=== PATIENT | male | born 1945 | race Caucasian/White ===

== ENCOUNTER → 2018-06-23 | Outpatient (CLI) | payer OTHER | END | disposition home or self-care (01) | LOC: PCVCCLINIC 11:43 | PROVIDERS: ATTEND Internal Medicine | DX: I25.10 Atherosclerotic heart disease of native coronary artery without angina pectoris (principal); I10 Essential (primary) hypertension; I65.29 Occlusion and stenosis of unspecified carotid artery; E78.5 Hyperlipidemia, unspecified; E11.9 Type 2 diabetes mellitus without complications; Z79.84 Long term (current) use of oral hypoglycemic drugs; Z87.891 Personal history of nicotine dependence | CPT/HCPCS: 93005; G0463 ==

== ENCOUNTER → 2018-07-24 | Outpatient (CLI) | payer OTHER ==
[~2018-07-24] MED LIST: REGADENOSON 0.4 MG/5 ML DISP.SYRIN. IV ONE
--- NOTE | 2018-07-24 11:33 | PCVCIMAG ---
APPROVED REPORT Study performed: 07/24/2018 08:55:08 EXAM: Comprehensive 2D, Doppler, and color-flow Echocardiogram Patient Location: Echo lab Status: routine BSA: 2.12 HR: 58 bpmBP: 142/82 mmHg Rhythm: NSR Other Information Study Quality: Adequate Risk Factors: Cardiac Risk Factors: HTN, Hyperlipidemia, DM Indications CAD 2D Dimensions IVSd: 11.69 (7-11mm)LVOT Diam: 20.00 (18-24mm) LVDd: 39.33 mm PWd: 11.91 (7-11mm)Ascending Ao: 31.96 (22-36mm) LVDs: 27.30 (25-40mm) Left Atrium: 42.67 (27-40mm) Aortic Root: 28.34 mm LV Single Plane 4CH: 62.99 % LV Single Plane 2CH: 64.04 % Biplane EF: 62.4 % Volumes Left Atrial Volume (Systole) Single Plane 4CH: 46.92 mLSingle Plane 2CH: 69.93 mL LA ESV Index: 30.00 mL/m2 Aortic Valve AoV Peak Brandon.: 1.23 m/s AO Peak Gr.: 6.04 mmHgLVOT Max P.03 mmHg LVOT Max V: 1.00 m/s DYLAN Vmax: 2.70 cm2 Mitral Valve E/A Ratio: 1.5 MV Decel. Time: 282.53 ms MV E Max Brandon.: 0.82 m/s MV A Brandon.: 0.55 m/s IVRT: 51.90 ms TDI E/Lateral E': 9.11E/Medial E': 10.25 Medial E' Brandon.: 0.08 m/s Lateral E' Brandon.: 0.09 m/s Pulmonary Valve PV Peak Brandon.: 0.81 m/sPV Peak Gr.: 2.63 mmHg Pulmonary Vein P Vein S: 0.61 m/sP Vein A: 0.27 m/s P Vein D: 0.56 m/sP Vein A Dur.: 114.2 msec P Vein S/D Ratio: 1.09 Tricuspid Valve TR Peak Brandon.: 2.68 m/sRAP Estimate: 7.00 mmHg TR Peak Gr.: 28.81 mmHg PA Pressure: 36.00 mmHg Left Ventricle The left ventricle is normal size. There is normal LV segmental wall motion. Mild concentric left ventricular hypertrophy. Left ventricular systolic function is normal. The left ventricular ejection fraction is within the normal range. LVEF is 60-65%. The left ventricular diastolic function is normal. Right Ventricle The right ventricle is normal size. The right ventricular systolic function is normal. Atria The left atrium size is normal. The right atrium size is normal. Aortic Valve The aortic valve is normal in structure. No aortic regurgitation is present. There is no aortic valvular stenosis. Mitral Valve The mitral valve is normal in structure. Trace to mild mitral regurgitation. No evidence of mitral valve stenosis. Tricuspid Valve The tricuspid valve is normal in structure. Mild tricuspid regurgitation. Pulmonary artery pressure is 36 mmHg. Pulmonic Valve The pulmonary valve is normal in structure. Trace pulmonic regurgitation. Great Vessels The aortic root is normal in size. IVC is normal in size and collapses >50% with inspiration. Pericardium There is no pericardial effusion. <Conclusion> The left ventricle is normal size. LVEF is 60-65%. The aortic valve is normal in structure. The mitral valve is normal in structure. Trace to mild mitral regurgitation. The tricuspid valve is normal in structure. Mild tricuspid regurgitation. Pulmonary artery pressure is 36 mmHg. The pulmonary valve is normal in structure. Trace pulmonic regurgitation. There is no pericardial effusion.
--- NOTE | 2018-07-25 11:20 | PCVCIMAG ---
APPROVED REPORT Imaging Protocol: Rest Tc-99m/Stress Tc-99m 1 day Study performed: 07/24/2018 09:19:19 Indication: CAD Patient Location: Out-Patient Stress Nurse: Shelly Lozada RN, Kamala Palacios RN [place] Tech:Terri Kunz [facility] Ht: 6 ft 0 in Wt: 197 lbs BSA: 2.12 m2 HR: 61 bpm BP: 188/82 mmHg BMI: 26.71 Rhythm: Sinus Rhythm Medical History Medical History: HTN, Hyperlipidemia, CVD, CAD, Diabetes, Former Smoker Medications: Amlodipine, Coreg, Catapres, Lisinopril, Metformin, Zocor Allergies: No known drug allergies Cardiac Risk Factors: Age Pretest Chest Pain Characteristics: No chest pain Exercise History: Physically active Meds Held (24 hrs): Coreg Resting Data Rest SPECT myocardial perfusion imaging was performed in supine position 45 minutes following the intravenous injection of 10.4 mCi of Tc-99m Sestamibi. Time of rest injection: 944 Date: 07/24/2018 Administration Route: IV Administration Site: Left AC Pharmacologic Stress Pharmacologic stress test was performed by injecting Regadenoson 0.4 mg IV push over 10-15 seconds immediately followed by the intravenous injection of 33.9 mCi of Tc-99m Sestamibi. Time of stress injection: 1110 Date: 07/24/2018 Administration Route: IV Administration Site: Left AC Gated Stress SPECT was performed 45 minutes after stress injection. The images were gated to evaluate regional wall motion and calculate left ventricular ejection fraction. Stress Test Details Stress Test: Pharmacologic stress was paired with low level exercise. Reason for pharmacologic stress test: High blood pressure. HRMax Heart Rate (APMHR): 149 bpm Resting HR: 61 bpmTarget HR (85% APMHR): 126 bpm Max HR Achieved: 86 bpm % of APMHR: 57 Recovery HR: 68 bpm BP Resting BP: 188/82 mmHg Max BP: 186/78 mmHg Recovery BP: 158/68 mmHg ECG Resting ECG: Sinus Rhythm Stress ECG: Sinus Rhythm Arrhythmia: None Recovery ECG: Sinus Rhythm, Clinical Reason for Termination: Completed protocol Stress Symptoms: Dyspnea Exercise duration: 0 min 55 sec Symptoms resolved during recovery. Stress ECG Conclusion 1. Adequate response to intravenous Lexiscan 2. Inadequate heart rate for ECG diagnosis Study Data Post stress, the left ventricular ejection was 53%.. SSS: 1 SRS: 6 SDS: 0 TID = 1.00. Perfusion There is a area of severely reduced uptake in the entire segment of the inferior wall which is seen on the stress images as well as the resting images. This area thickens and moves normally and is most consistent with attenuation artifact. Nuclear Conclusion ECG Findings: non-diagnostic Clinical Findings: negative for ischemia Nuclear Findings: negative for ischemia Exercise Capacity: not assessed Left Ventricular Function: normal 1. Low risk study 2. Post stress LVEF 53% without wall motion abnormalities <Conclusion> 1. Adequate response to intravenous Lexiscan 2. Inadequate heart rate for ECG diagnosis
== END | disposition home or self-care (01) ==
LOC: PCVCIMAG 08:45
PROVIDERS: ATTEND Internal Medicine
DX: I25.10 Atherosclerotic heart disease of native coronary artery without angina pectoris (principal); I08.1 Rheumatic disorders of both mitral and tricuspid valves; E78.5 Hyperlipidemia, unspecified; E11.9 Type 2 diabetes mellitus without complications; Z87.891 Personal history of nicotine dependence
CPT/HCPCS: 78452; 93017; 93306; A9500; J2785